=== PATIENT | male | born 1985 | race Caucasian/White ===

== ENCOUNTER 2017-12-13 16:47 | Inpatient (IN) | payer MEDICAID ==
[~2017-12-13] VITALS: Ht 200.7 cm; Wt 62.6 kg
[2017-12-13] MEDS ORDERED: SERT50TA12 PO (17:08)
[2017-12-13 17:19] LABS: AMPHET/METH SCREEN,URINE POSITIVE (NEGATIVE); BARBITURATE SCREEN, URINE NEGATIVE (NEGATIVE); BENZODIAZEPINES SCREEN,URINE NEGATIVE (NEGATIVE); CANNABINOID SCREEN,URINE POSITIVE (NEGATIVE); COCAINE SCREEN,URINE NEGATIVE (NEGATIVE); METHADONE SCREEN, URINE NEGATIVE (NEGATIVE); OPIATE SCREEN,URINE NEGATIVE (NEGATIVE)
[2017-12-13 17:23] LABS: PHENCYCLIDINE SCREEN,URINE NEGATIVE (NEGATIVE)
[2017-12-13] MEDS ORDERED: LORazepam 2 MG/ML VIAL IM ONE (20:00)
[2017-12-13] MEDS ORDERED: HALOPERIDOL LACTATE 5 MG/ML VIAL IM ONE (20:00)
[2017-12-13] MEDS ORDERED: DiphenhydrAMINE HCL 50 MG/ML VIAL IM ONE (20:00)
[2017-12-14 12:47] VITALS: BP 123/61
[2017-12-14 16:14] VITALS: BP 114/60
[2017-12-14] MEDS ORDERED: ONDANSETRON HCL 4 MG TABLET PO PRN (19:00)
[2017-12-14] MEDS ORDERED: ACETAMINOPHEN 325 MG TABLET PO PRN (19:00)
[2017-12-14] MEDS ORDERED: IBUPROFEN 600 MG TABLET PO PRN (19:00)
[2017-12-14] MEDS ORDERED: ALBUTEROL SULFATE HFA 90 MCG/PUFF 8 GM INHALER IH PRN (19:00)
[2017-12-14] MEDS ORDERED: BACITRACIN 28.4 GM OINTMENT TP PRN (19:00)
[2017-12-14] MEDS ORDERED: MAG HYDROX/AL HYDROX/SIMETH ES 30 ML SUSPENSION UDCUP PO PRN (19:00)
[2017-12-14] MEDS ORDERED: LOPERAMIDE HCL 2 MG CAPSULE PO PRN (19:00)
[2017-12-14] MEDS ORDERED: BENZOCAINE/MENTHOL LOZENGE MM PRN (19:00)
[2017-12-14] MEDS ORDERED: CloNIDine HCL 0.1 MG TABLET PO PRN (19:00)
[2017-12-14] MEDS ORDERED: MAGNESIUM HYDROXIDE SUSPENSION 30 ML UDCUP PO PRN (19:00)
[2017-12-14] MEDS ORDERED: PETROLATUM,WHITE 71 GM JELLY TP PRN (19:00)
[2017-12-15 06:38] VITALS: BP 116/64
[2017-12-15 08:00] VITALS: BP 113/68
[2017-12-15] MEDS: OMEPRAZOLE 20 MG CAPSULE PO SCH (09:00)
[2017-12-15] MEDS: DOCUSATE SODIUM 100 MG CAPSULE PO SCH (09:00)
[2017-12-15] MEDS: LORazepam 2 MG TABLET PO PRN (14:47)
[2017-12-15] MEDS: HALOPERIDOL 5 MG TABLET PO PRN (14:47)
[2017-12-15 16:00] VITALS: BP 124/71
[2017-12-15] MEDS: OLANZapine 5 MG TABLET PO SCH (20:09)
[2017-12-16 06:32] VITALS: BP 115/82
[2017-12-16 08:20] LABS: BASOPHILS % (AUTO) 0.7 % (0.0-2.0); EOSINOPHILS % (AUTO) 4.9 % (1.0-6.0); HEMATOCRIT 40.5 % (41-53); HEMOGLOBIN 13.4 g/dL (13.5-17.5); LYMPHOCYTES # (AUTO) 1.2 K/uL (1.0-4.8); MEAN CORPUSCULAR HEMOGLOBIN 28.3 pg (26.0-34.0); MEAN CORPUSCULAR HGB CONC 33.2 G/dL (31.0-37.0); MEAN CORPUSCULAR VOLUME 85 fL (80-100); MONOCYTES # (AUTO) 0.3 K/uL (0.1-1.0); MONOCYTES % (AUTO) 6.7 % (2.0-9.0); NEUTROPHILS # (AUTO) 2.6 K/uL (1.8-7.7); NEUTROPHILS % (AUTO) 59.7 % (40.0-70.0); PLATELET COUNT (AUTO) 265 K/uL (150-450); RED BLOOD CELL COUNT(AUTO) 4.75 MIL/uL (4.50-5.90); RED CELL DISTRIBUTION WIDTH 12.5 % (11.5-14.5)
[2017-12-16 08:21] VITALS: BP 129/79
[2017-12-16 08:45] LABS: HEMOGLOBIN A1C 6.2 % (4.5-6.2)
[2017-12-16] MEDS: OLANZapine 5 MG TABLET PO SCH ×2 (09:00→21:00)
[2017-12-16] MEDS: DOCUSATE SODIUM 100 MG CAPSULE PO SCH (09:00)
[2017-12-16] MEDS: OMEPRAZOLE 20 MG CAPSULE PO SCH (09:00)
[2017-12-16 09:21] LABS: ALANINE AMINOTRANSFERASE 63 U/L (12-78); ALBUMIN 3.6 g/dL (3.4-5.0); ALKALINE PHOSPHATASE 56 U/L (46-116); ANION GAP 8 mmol/L (8-16); ASPARTATE AMINOTRANSFERASE 45 U/L (15-37); BILIRUBIN,TOTAL 0.9 mg/dL (0.1-1.0); CALCIUM, TOTAL 8.3 mg/dL (8.8-10.5); CARBON DIOXIDE 26 mmol/L (22-29); CHLORIDE 105 mmol/L (98-107); CHOL/HDL RATIO 2.9 (4.2-7.3); CHOLESTEROL 144 mg/dL (131-200); CREATININE 0.94 mg/dL (0.60-1.30); FREE T4 (FREE THYROXINE) 1.02 ng/dL (0.76-1.46); GLOMERULAR FILTR. RATE CALC > 60 mL/min (>60); GLUCOSE,RANDOM 93 mg/dL (70-110); HDL CHOLESTEROL 49 mg/dL (40-60); LDL CHOL (CALC.) 81 mg/dL (0-130); POTASSIUM 4.2 mmol/L (3.5-5.1); SODIUM SERUM 139 mmol/L (136-145); THYROID STIMULATING HORMONE 2.59 uIU/mL (0.36-3.74); TOTAL PROTEIN, SERUM 6.9 g/dL (6.4-8.2); TRIGLYCERIDES 68 mg/dL (15-150); UREA NITROGEN, BLOOD 12 mg/dL (7-18)
[2017-12-16] MEDS: LORazepam 2 MG TABLET PO PRN (15:16)
[2017-12-16] MEDS: HALOPERIDOL 5 MG TABLET PO PRN (15:16)
[2017-12-16 16:11] VITALS: BP 138/78
[2017-12-16] MEDS: ZOLPIDEM TARTRATE 10 MG TABLET PO PRN (21:00)
[2017-12-17 06:40] VITALS: BP 113/64
[2017-12-17 08:26] VITALS: BP 126/79
[2017-12-17] MEDS: OLANZapine 5 MG TABLET PO SCH ×2 (10:06→20:29)
[2017-12-17] MEDS: DOCUSATE SODIUM 100 MG CAPSULE PO SCH (10:06)
[2017-12-17] MEDS: OMEPRAZOLE 20 MG CAPSULE PO SCH (10:06)
[2017-12-17] MEDS: LORazepam 2 MG TABLET PO PRN ×2 (10:07→17:19)
[2017-12-17 16:13] VITALS: BP 114/66
[2017-12-17] MEDS: ZOLPIDEM TARTRATE 10 MG TABLET PO PRN (20:28)
[2017-12-18 06:19] VITALS: BP 121/75
[2017-12-18 08:06] VITALS: BP 127/82
[2017-12-18] MEDS: OLANZapine 5 MG TABLET PO SCH (09:00)
[2017-12-18] MEDS: OMEPRAZOLE 20 MG CAPSULE PO SCH (09:00)
[2017-12-18] MEDS: DOCUSATE SODIUM 100 MG CAPSULE PO SCH (09:00)
[2017-12-18 16:00] VITALS: BP 116/70
[2017-12-18] MEDS: LORazepam 2 MG TABLET PO PRN ×2 (16:44→20:45)
[2017-12-18] MEDS: ZOLPIDEM TARTRATE 10 MG TABLET PO PRN (20:45)
[2017-12-18] MEDS: OLANZapine 10 MG TABLET PO SCH (20:45)
[2017-12-19 01:51] VITALS: BP 121/90
[2017-12-19 08:24] VITALS: BP 135/88
[2017-12-19] MEDS: OMEPRAZOLE 20 MG CAPSULE PO SCH (08:55)
[2017-12-19] MEDS: LORazepam 2 MG TABLET PO PRN ×3 (08:56→20:19)
[2017-12-19] MEDS: HALOPERIDOL 5 MG TABLET PO PRN ×2 (08:56→13:49)
[2017-12-19] MEDS: DOCUSATE SODIUM 100 MG CAPSULE PO SCH (08:56)
[2017-12-19 16:00] VITALS: BP 130/88
[2017-12-19] MEDS: OLANZapine 10 MG TABLET PO SCH (20:19)
[2017-12-19] MEDS: ZOLPIDEM TARTRATE 10 MG TABLET PO PRN (20:19)
[2017-12-20 07:00] VITALS: BP 140/90
[2017-12-20 08:20] VITALS: BP 138/84
[2017-12-20] MEDS: DOCUSATE SODIUM 100 MG CAPSULE PO SCH (09:32)
[2017-12-20] MEDS: OMEPRAZOLE 20 MG CAPSULE PO SCH (09:32)
[2017-12-20] MEDS: HALOPERIDOL 5 MG TABLET PO PRN (16:06)
[2017-12-20] MEDS: LORazepam 1 MG TABLET PO PRN (16:06)
[2017-12-20 16:08] VITALS: BP 134/83
[2017-12-20] MEDS: ZOLPIDEM TARTRATE 10 MG TABLET PO PRN (20:12)
[2017-12-20] MEDS: OLANZapine 10 MG TABLET PO SCH (20:12)
[2017-12-21 05:48] VITALS: BP 144/93
[2017-12-21 08:10] VITALS: BP 148/76
[2017-12-21] MEDS: DOCUSATE SODIUM 100 MG CAPSULE PO SCH (08:50)
[2017-12-21] MEDS: OMEPRAZOLE 20 MG CAPSULE PO SCH (08:50)
[2017-12-21] MEDS: LORazepam 1 MG TABLET PO PRN ×2 (11:21→16:32)
[2017-12-21 16:22] VITALS: BP 110/61
[2017-12-21] MEDS: HALOPERIDOL 5 MG TABLET PO PRN (16:32)
[2017-12-21] MEDS: ZOLPIDEM TARTRATE 10 MG TABLET PO PRN (20:27)
[2017-12-21] MEDS: OLANZapine 10 MG TABLET PO SCH (20:27)
[2017-12-22 01:18] VITALS: BP 141/91
[2017-12-22 08:04] VITALS: BP 127/69
[2017-12-22] MEDS: DOCUSATE SODIUM 100 MG CAPSULE PO SCH (08:50)
[2017-12-22] MEDS: OMEPRAZOLE 20 MG CAPSULE PO SCH (08:50)
[2017-12-22] MEDS ORDERED: OLAN10TA20 PO (09:03)
[2017-12-22] MEDS ORDERED: OLAN10TA3 PO (13:29)
== END 2017-12-22 14:00 | disposition home or self-care (01) | DRG 750 ==
LOC: EMS 16:49 → B3A 12-14 11:35
DX: F20.0 Paranoid schizophrenia (principal); F32.9 Major depressive disorder, single episode, unspecified; F15.10 Other stimulant abuse, uncomplicated; K59.00 Constipation, unspecified; F12.10 Cannabis abuse, uncomplicated; Z72.89 Other problems related to lifestyle; Z71.41 Alcohol abuse counseling and surveillance of alcoholic; Z71.51 Drug abuse counseling and surveillance of drug abuser
CPT/HCPCS: 83036; 84439; 84443; 96372; 99285; J1200; J1630; J2060

== ENCOUNTER 2017-12-22 20:07 | Inpatient (IN) | payer MEDICAID ==
[~2017-12-22] VITALS: Ht 170.2 cm; Wt 65.3 kg
[~2017-12-22 20:07] MED LIST: OLAN10TA20 PO; OLAN10TA3 PO; SERT50TA12 PO
[2017-12-22 20:56] LABS: BASOPHILS % (AUTO) 0.5 % (0.0-2.0); EOSINOPHILS % (AUTO) 0.9 % (1.0-6.0); HEMATOCRIT 38.6 % (41-53); LYMPHOCYTES # (AUTO) 1.8 K/uL (1.0-4.8); LYMPHOCYTES % (AUTO) 16.5 % (22.0-44.0); MEAN CORPUSCULAR HEMOGLOBIN 28.2 pg (26.0-34.0); MEAN CORPUSCULAR HGB CONC 33.6 G/dL (31.0-37.0); MEAN CORPUSCULAR VOLUME 84 fL (80-100); MONOCYTES # (AUTO) 1.1 K/uL (0.1-1.0); MONOCYTES % (AUTO) 10.4 % (2.0-9.0); NEUTROPHILS # (AUTO) 7.7 K/uL (1.8-7.7); NEUTROPHILS % (AUTO) 71.7 % (40.0-70.0); PLATELET COUNT (AUTO) 258 K/uL (150-450); RED BLOOD CELL COUNT(AUTO) 4.61 MIL/uL (4.50-5.90); RED CELL DISTRIBUTION WIDTH 12.4 % (11.5-14.5)
[2017-12-22] MEDS ORDERED: LORazepam 2 MG/ML VIAL IM ONE (21:00)
[2017-12-22] MEDS ORDERED: HALOPERIDOL LACTATE 5 MG/ML VIAL IM ONE (21:00)
[2017-12-22 21:05] LABS: AMPHET/METH SCREEN,URINE NEGATIVE (NEGATIVE); BARBITURATE SCREEN, URINE NEGATIVE (NEGATIVE); BENZODIAZEPINES SCREEN,URINE NEGATIVE (NEGATIVE); CANNABINOID SCREEN,URINE POSITIVE (NEGATIVE); COCAINE SCREEN,URINE NEGATIVE (NEGATIVE); METHADONE SCREEN, URINE NEGATIVE (NEGATIVE); OPIATE SCREEN,URINE NEGATIVE (NEGATIVE)
[2017-12-22 21:06] LABS: ANION GAP 8 mmol/L (8-16); CARBON DIOXIDE 30 mmol/L (22-29); CHLORIDE 101 mmol/L (98-107); CREATININE 1.32 mg/dL (0.60-1.30); GLOMERULAR FILTR. RATE CALC > 60 mL/min (>60); GLUCOSE,RANDOM 99 mg/dL (70-110); POTASSIUM 4.6 mmol/L (3.5-5.1); SODIUM SERUM 139 mmol/L (136-145); UREA NITROGEN, BLOOD 23 mg/dL (7-18)
[2017-12-22 21:10] LABS: PHENCYCLIDINE SCREEN,URINE NEGATIVE (NEGATIVE)
[2017-12-22 21:12] LABS: ALANINE AMINOTRANSFERASE 73 U/L (12-78); ALBUMIN 4.1 g/dL (3.4-5.0); ALKALINE PHOSPHATASE 62 U/L (46-116); ASPARTATE AMINOTRANSFERASE 43 U/L (15-37); BILIRUBIN,TOTAL 0.4 mg/dL (0.1-1.0); TOTAL PROTEIN, SERUM 7.3 g/dL (6.4-8.2)
[2017-12-23] MEDS: OLANZapine 5 MG RAPDIS TABLET PO PRN (00:47)
[2017-12-23] MEDS: ZOLPIDEM TARTRATE 10 MG TABLET PO PRN ×2 (00:47→22:37)
[2017-12-23] MEDS: LORazepam 2 MG TABLET PO PRN (00:47)
[2017-12-23 00:56] VITALS: BP 135/90
[2017-12-23 08:16] VITALS: BP 135/89
[2017-12-23] MEDS ORDERED: ONDANSETRON HCL 4 MG TABLET PO PRN (14:15)
[2017-12-23] MEDS ORDERED: DOCUSATE SODIUM 100 MG CAPSULE PO PRN (14:15)
[2017-12-23] MEDS ORDERED: MAGNESIUM HYDROXIDE SUSPENSION 30 ML UDCUP PO PRN (14:15)
[2017-12-23] MEDS ORDERED: ACETAMINOPHEN 325 MG TABLET PO PRN (14:15)
[2017-12-23] MEDS ORDERED: ALBUTEROL SULFATE HFA 90 MCG/PUFF 8 GM INHALER IH PRN (14:15)
[2017-12-23] MEDS ORDERED: MAG HYDROX/AL HYDROX/SIMETH ES 30 ML SUSPENSION UDCUP PO PRN (14:15)
[2017-12-23] MEDS ORDERED: PETROLATUM,WHITE 71 GM JELLY TP PRN (14:15)
[2017-12-23] MEDS ORDERED: IBUPROFEN 400 MG TABLET PO PRN (14:15)
[2017-12-23 16:00] VITALS: BP 120/77
[2017-12-24 05:08] VITALS: BP 140/86
[2017-12-24 08:25] VITALS: BP 119/65
[2017-12-24 08:55] LABS: THYROID STIMULATING HORMONE 1.39 uIU/mL (0.36-3.74)
[2017-12-24] MEDS: OLANZapine 5 MG RAPDIS TABLET PO PRN (09:41)
[2017-12-24] MEDS: LORazepam 2 MG TABLET PO PRN ×2 (09:41→16:29)
[2017-12-24 17:21] VITALS: BP 119/68
[2017-12-24] MEDS: OLANZapine 10 MG TABLET PO SCH (20:39)
[2017-12-24] MEDS: ZOLPIDEM TARTRATE 10 MG TABLET PO PRN (20:39)
[2017-12-25 08:09] VITALS: BP 124/65
[2017-12-25 08:55] LABS: % IRON SATURATION 31.9 % (30-44)
[2017-12-25 16:00] VITALS: BP 128/64
[2017-12-25] MEDS: LORazepam 2 MG TABLET PO PRN (16:38)
[2017-12-25] MEDS: OLANZapine 5 MG RAPDIS TABLET PO PRN (16:38)
[2017-12-25] MEDS: ZOLPIDEM TARTRATE 10 MG TABLET PO PRN (20:58)
[2017-12-25] MEDS: OLANZapine 10 MG TABLET PO SCH (20:58)
[2017-12-26 08:48] VITALS: BP 130/81
[2017-12-26] MEDS: LORazepam 2 MG TABLET PO PRN (12:53)
== END 2017-12-26 15:30 | disposition home or self-care (01) | DRG 750 ==
LOC: EMS 20:09 → B3A 21:00
DX: F25.0 Schizoaffective disorder, bipolar type (principal); Z91.19 Patient's noncompliance with other medical treatment and regimen; I10 Essential (primary) hypertension; F41.9 Anxiety disorder, unspecified; F12.10 Cannabis abuse, uncomplicated; D64.9 Anemia, unspecified; F99 Mental disorder, not otherwise specified; F10.10 Alcohol abuse, uncomplicated
CPT/HCPCS: 80074; 82728; 83540; 83550; 84443; 87081; 99285; G0480

== ENCOUNTER 2019-01-26 15:35 | Inpatient (IN) | payer SELFPAY ==
[~2019-01-26] VITALS: Ht 170.2 cm; Wt 68.0 kg
[~2019-01-26 15:35] MED LIST changes: -OLAN10TA20 PO; -SERT50TA12 PO
[2019-01-26 16:43] LABS: BASOPHILS % (AUTO) 0.4 % (0.0-2.0); EOSINOPHILS % (AUTO) 1.1 % (1.0-6.0); HEMATOCRIT 38.5 % (41-53); HEMOGLOBIN 12.3 g/dL (13.5-17.5); LYMPHOCYTES % (AUTO) 12.8 % (22.0-44.0); MEAN CORPUSCULAR HEMOGLOBIN 27.3 pg (26.0-34.0); MEAN CORPUSCULAR VOLUME 85 fL (80-100); MONOCYTES # (AUTO) 0.5 K/uL (0.1-1.0); MONOCYTES % (AUTO) 6.7 % (2.0-9.0); NEUTROPHILS # (AUTO) 5.9 K/uL (1.8-7.7); PLATELET COUNT (AUTO) 276 K/uL (150-450); RED BLOOD CELL COUNT(AUTO) 4.53 MIL/uL (4.50-5.90); RED CELL DISTRIBUTION WIDTH 13.5 % (11.5-14.5)
[2019-01-26 16:55] LABS: ANION GAP 8 mmol/L (8-16); CALCIUM, TOTAL 9.4 mg/dL (8.8-10.5); CARBON DIOXIDE 29 mmol/L (22-29); CHLORIDE 103 mmol/L (98-107); CREATININE 1.16 mg/dL (0.60-1.30); GLOMERULAR FILTR. RATE CALC > 60 mL/min (>60); GLUCOSE,RANDOM 101 mg/dL (70-110); POTASSIUM 4.1 mmol/L (3.5-5.1); SODIUM SERUM 140 mmol/L (136-145); UREA NITROGEN, BLOOD 19 mg/dL (7-18)
[2019-01-26 17:00] LABS: ALANINE AMINOTRANSFERASE 34 U/L (12-78); ALBUMIN 3.5 g/dL (3.4-5.0); ALKALINE PHOSPHATASE 52 U/L (46-116); ASPARTATE AMINOTRANSFERASE 21 U/L (15-37); BILIRUBIN,TOTAL 0.4 mg/dL (0.1-1.0); TOTAL PROTEIN, SERUM 6.8 g/dL (6.4-8.2)
[2019-01-26] MEDS ORDERED: ZOLPIDEM TARTRATE 10 MG TABLET PO PRN (17:30)
[2019-01-26] MEDS ORDERED: HALOPERIDOL 5 MG TABLET PO PRN (17:30)
[2019-01-26] MEDS ORDERED: LORazepam 2 MG TABLET PO PRN (17:30)
[2019-01-26] MEDS ORDERED: IBUPROFEN 400 MG TABLET PO PRN (17:45)
[2019-01-26] MEDS ORDERED: ACETAMINOPHEN 325 MG TABLET PO PRN (17:45)
[2019-01-26 18:20] LABS: AMPHET/METH SCREEN,URINE POSITIVE (NEGATIVE); BARBITURATE SCREEN, URINE NEGATIVE (NEGATIVE); BENZODIAZEPINES SCREEN,URINE NEGATIVE (NEGATIVE); CANNABINOID SCREEN,URINE POSITIVE (NEGATIVE); COCAINE SCREEN,URINE POSITIVE (NEGATIVE); METHADONE SCREEN, URINE NEGATIVE (NEGATIVE); OPIATE SCREEN,URINE NEGATIVE (NEGATIVE)
[2019-01-26 18:23] LABS: PHENCYCLIDINE SCREEN,URINE NEGATIVE (NEGATIVE)
[2019-01-26 21:39] VITALS: BP 125/79
[2019-01-27 06:28] VITALS: BP 123/69
[2019-01-27 09:28] VITALS: BP 142/79
[2019-01-27 16:00] VITALS: BP 115/74
[2019-01-28 06:53] VITALS: BP 117/75
[2019-01-28 09:03] VITALS: BP 110/66
[2019-01-28 16:07] VITALS: BP 126/82
== END 2019-01-28 16:45 | disposition home or self-care (01) | DRG 885 ==
LOC: EMS 15:37 → B3A 19:30 → EMS 20:34
DX: F20.0 Paranoid schizophrenia (principal); R45.851 Suicidal ideations; F15.10 Other stimulant abuse, uncomplicated; F14.10 Cocaine abuse, uncomplicated; F12.10 Cannabis abuse, uncomplicated; R45.850 Homicidal ideations; F10.10 Alcohol abuse, uncomplicated; F99 Mental disorder, not otherwise specified; D64.9 Anemia, unspecified; F32.9 Major depressive disorder, single episode, unspecified; Z91.5 Personal history of self-harm; Z78.1 Physical restraint status
CPT/HCPCS: G0480

== ENCOUNTER 2022-02-27 15:32 | Inpatient (IN) | payer MEDICARE, MEDICAID ==
[~2022-02-27] VITALS: Ht 170.2 cm; Wt 65.6 kg
[2022-02-27] MEDS ORDERED: HALOPERIDOL LACTATE 5 MG/ML VIAL IM ONE (15:45)
[2022-02-27 15:53] LABS: BASOPHILS % (AUTO) 0.8 % (0.0-2.0); EOSINOPHILS % (AUTO) 1.1 % (1.0-6.0); HEMATOCRIT 35.9 % (41-53); HEMOGLOBIN 11.8 g/dL (13.5-17.5); LYMPHOCYTES # (AUTO) 1.3 K/uL (1.0-4.8); LYMPHOCYTES % (AUTO) 23.7 % (22.0-44.0); MEAN CORPUSCULAR HEMOGLOBIN 27.1 pg (26.0-34.0); MEAN CORPUSCULAR VOLUME 82 fL (80-100); MONOCYTES # (AUTO) 0.4 K/uL (0.1-1.0); MONOCYTES % (AUTO) 8.1 % (2.0-9.0); NEUTROPHILS # (AUTO) 3.6 K/uL (1.8-7.7); NEUTROPHILS % (AUTO) 66.3 % (40.0-70.0); PLATELET COUNT (AUTO) 265 K/uL (150-450); RED BLOOD CELL COUNT(AUTO) 4.37 MIL/uL (4.50-5.90); RED CELL DISTRIBUTION WIDTH 13.1 % (11.5-14.5)
[2022-02-27 16:07] LABS: ANION GAP 10 mmol/L (8-16); CALCIUM, TOTAL 8.7 mg/dL (8.8-10.5); CARBON DIOXIDE 26 mmol/L (22-29); CHLORIDE 108 mmol/L (98-107); GLUCOSE,RANDOM 118 mg/dL (70-110); POTASSIUM 3.9 mmol/L (3.5-5.1); SODIUM SERUM 144 mmol/L (136-145); UREA NITROGEN, BLOOD 16 mg/dL (7-18)
[2022-02-27 16:09] LABS: GLOMERULAR FILTR. RATE CALC 49 mL/min (>60)
[2022-02-27 16:12] LABS: ALANINE AMINOTRANSFERASE 37 U/L (12-78); ALBUMIN 3.8 g/dL (3.4-5.0); ALKALINE PHOSPHATASE 51 U/L (46-116); ASPARTATE AMINOTRANSFERASE 33 U/L (15-37); TOTAL PROTEIN, SERUM 6.8 g/dL (6.4-8.2)
[2022-02-27] MEDS ORDERED: HALOPERIDOL 5 MG TABLET PO PRN (16:45)
[2022-02-27] MEDS ORDERED: ZOLPIDEM TARTRATE 10 MG TABLET PO PRN (16:45)
[2022-02-27] MEDS ORDERED: LORazepam 2 MG TABLET PO PRN (16:45)
[2022-02-27 16:49] LABS: COVID AG,FIA SOURCE NASOPHARYNGEAL
[2022-02-27 20:51] VITALS: BP 144/93
[2022-02-27] MEDS ORDERED: MAG HYDROX/AL HYDROX/SIMETH ES 30 ML SUSPENSION UDCUP PO PRN (21:30)
[2022-02-27] MEDS ORDERED: CloNIDine HCL 0.1 MG TABLET PO PRN (21:30)
[2022-02-27] MEDS ORDERED: MAGNESIUM HYDROXIDE SUSPENSION 30 ML UDCUP PO PRN (21:30)
[2022-02-27] MEDS ORDERED: LOPERAMIDE HCL 2 MG CAPSULE PO PRN (21:30)
[2022-02-27] MEDS ORDERED: PETROLATUM,WHITE 28 GM JELLY TP PRN (21:30)
[2022-02-27] MEDS ORDERED: DOCUSATE SODIUM 100 MG CAPSULE PO PRN (21:30)
[2022-02-27] MEDS ORDERED: IBUPROFEN 600 MG TABLET PO PRN (21:30)
[2022-02-27] MEDS ORDERED: BENZOCAINE/MENTHOL LOZENGE PO PRN (21:30)
[2022-02-27] MEDS ORDERED: ACETAMINOPHEN 325 MG TABLET PO PRN (21:30)
[2022-02-27] MEDS ORDERED: OMEPRAZOLE 20 MG CAPSULE PO PRN (21:30)
[2022-02-27] MEDS ORDERED: ONDANSETRON HCL 4 MG TABLET PO PRN (21:30)
[2022-02-27] MEDS ORDERED: BACITRACIN 28 GM OINTMENT TP PRN (21:30)
[2022-02-27] MEDS ORDERED: ALBUTEROL SULFATE HFA 90 MCG/PUFF 8 GM INHALER IH PRN (21:30)
[2022-02-27 21:46] LABS: APPEARANCE,URINE HAZY (CLEAR); BILIRUBIN,URINE NEGATIVE (NEGATIVE); GLUCOSE, URINE (UA) NEGATIVE (NEGATIVE); KETONES,URINE NEGATIVE (NEGATIVE); LEUKOCYTE ESTERASE ,URINE NEGATIVE (NEGATIVE); NITRATE,URINE NEGATIVE (NEGATIVE); OCCULT BLOOD,URINE NEGATIVE (NEGATIVE); PROTEIN,URINE NEGATIVE (NEGATIVE); SPECIFIC GRAVITIY, URINE 1.017 (1.003-1.030); UROBILINOGEN,URINE <=1.0 mg/dL (<=1.0)
[2022-02-27 21:52] LABS: AMPHET/METH SCREEN,URINE POSITIVE (NEGATIVE); BARBITURATE SCREEN, URINE NEGATIVE (NEGATIVE); BENZODIAZEPINES SCREEN,URINE POSITIVE (NEGATIVE); CANNABINOID SCREEN,URINE POSITIVE (NEGATIVE); COCAINE SCREEN,URINE NEGATIVE (NEGATIVE); METHADONE SCREEN, URINE NEGATIVE (NEGATIVE); OPIATE SCREEN,URINE NEGATIVE (NEGATIVE); PHENCYCLIDINE SCREEN,URINE NEGATIVE (NEGATIVE)
[2022-02-28 11:55] VITALS: BP 132/75
[2022-02-28] MEDS: AmLODIPine BESYLATE 5 MG TABLET PO SCH (11:57)
[2022-02-28 16:29] VITALS: BP 122/88
[2022-03-01 07:11] LABS: ALANINE AMINOTRANSFERASE 42 U/L (12-78); ALBUMIN 3.8 g/dL (3.4-5.0); ALKALINE PHOSPHATASE 61 U/L (46-116); ANION GAP 7 mmol/L (8-16); ASPARTATE AMINOTRANSFERASE 35 U/L (15-37); BILIRUBIN,TOTAL 1.1 mg/dL (0.1-1.0); CALCIUM, TOTAL 9.2 mg/dL (8.8-10.5); CARBON DIOXIDE 27 mmol/L (22-29); CHLORIDE 102 mmol/L (98-107); CREATININE 1.04 mg/dL (0.60-1.30); GLUCOSE,RANDOM 105 mg/dL (70-110); POTASSIUM 4.5 mmol/L (3.5-5.1); SODIUM SERUM 136 mmol/L (136-145); TOTAL PROTEIN, SERUM 7.5 g/dL (6.4-8.2); UREA NITROGEN, BLOOD 13 mg/dL (7-18)
[2022-03-01 07:12] LABS: GLOMERULAR FILTR. RATE CALC > 60 mL/min (>60)
[2022-03-01 08:30] VITALS: BP 119/67
[2022-03-01] MEDS: RisperiDONE 3 MG TABLET PO SCH ×2 (09:03→20:25)
[2022-03-01] MEDS: AmLODIPine BESYLATE 5 MG TABLET PO SCH (09:03)
[2022-03-02 08:00] VITALS: BP 131/76
[2022-03-02] MEDS: AmLODIPine BESYLATE 5 MG TABLET PO SCH (09:15)
[2022-03-02] MEDS: RisperiDONE 3 MG TABLET PO SCH ×2 (09:15→20:32)
[2022-03-02] MEDS ORDERED: RISP3TAB63 PO (22:10)
[2022-03-03] MEDS: AmLODIPine BESYLATE 5 MG TABLET PO SCH (08:05)
[2022-03-03] MEDS: RisperiDONE 3 MG TABLET PO SCH (08:05)
[2022-03-03 08:25] VITALS: BP 142/87
[2022-03-03] MEDS ORDERED: AMLO-257 PO (09:06)
== END 2022-03-03 10:43 | disposition home or self-care (01) | DRG 885 ==
LOC: EMS 15:32 → 3EC 16:38
PROVIDERS: ADMIT Psychiatry & Neurology Psychiatry; ATTEND Psychiatry & Neurology Psychiatry
DX: F20.9 Schizophrenia, unspecified (principal); N17.0 Acute kidney failure with tubular necrosis; F15.10 Other stimulant abuse, uncomplicated; F12.10 Cannabis abuse, uncomplicated; F41.9 Anxiety disorder, unspecified; G47.00 Insomnia, unspecified; K59.00 Constipation, unspecified; I10 Essential (primary) hypertension; Z20.822 Contact with and (suspected) exposure to COVID-19
CPT/HCPCS: 80053; 80307; 81003; 85025; 99291; G0480; J1630

== ENCOUNTER 2022-03-13 21:01 | Inpatient (IN) | payer MEDICARE, MEDICAID ==
[~2022-03-13] VITALS: Ht 170.2 cm; Wt 69.8 kg
[~2022-03-13 21:01] MED LIST changes: +AMLO-257 PO; -OLAN10TA3 PO; +RISP3TAB63 PO
[2022-03-14 02:28] LABS: COVID AG,FIA SOURCE NASAL SWAB
[2022-03-14 16:06] VITALS: BP 144/64
[2022-03-14] MEDS: RisperiDONE 3 MG TABLET PO SCH (21:09)
[2022-03-15 07:20] LABS: BASOPHILS % (AUTO) 0.5 % (0.0-2.0); EOSINOPHILS % (AUTO) 6.2 % (1.0-6.0); HEMATOCRIT 43.4 % (41-53); LYMPHOCYTES # (AUTO) 1.9 K/uL (1.0-4.8); LYMPHOCYTES % (AUTO) 34.6 % (22.0-44.0); MEAN CORPUSCULAR HEMOGLOBIN 27.2 pg (26.0-34.0); MEAN CORPUSCULAR HGB CONC 32.3 G/dL (31.0-37.0); MEAN CORPUSCULAR VOLUME 84 fL (80-100); MONOCYTES # (AUTO) 0.4 K/uL (0.1-1.0); MONOCYTES % (AUTO) 7.2 % (2.0-9.0); NEUTROPHILS # (AUTO) 2.8 K/uL (1.8-7.7); NEUTROPHILS % (AUTO) 51.5 % (40.0-70.0); PLATELET COUNT (AUTO) 320 K/uL (150-450); RED BLOOD CELL COUNT(AUTO) 5.14 MIL/uL (4.50-5.90); RED CELL DISTRIBUTION WIDTH 13.5 % (11.5-14.5)
[2022-03-15 07:25] LABS: HEMOGLOBIN A1C 5.9 % (3.8-5.6)
[2022-03-15 07:37] LABS: ALANINE AMINOTRANSFERASE 26 U/L (12-78); ALBUMIN 3.6 g/dL (3.4-5.0); ALKALINE PHOSPHATASE 63 U/L (46-116); ANION GAP 7 mmol/L (8-16); ASPARTATE AMINOTRANSFERASE 17 U/L (15-37); BILIRUBIN,TOTAL 0.7 mg/dL (0.1-1.0); CALCIUM, TOTAL 9.3 mg/dL (8.8-10.5); CARBON DIOXIDE 28 mmol/L (22-29); CHLORIDE 107 mmol/L (98-107); CHOL/HDL RATIO 3.2 (4.2-7.3); CHOLESTEROL 175 mg/dL (131-200); CREATININE 0.95 mg/dL (0.60-1.30); GLUCOSE,RANDOM 101 mg/dL (70-110); HDL CHOLESTEROL 54 mg/dL (40-60); LDL CHOL (CALC.) 101 mg/dL (0-130); POTASSIUM 4.1 mmol/L (3.5-5.1); SODIUM SERUM 142 mmol/L (136-145); TOTAL PROTEIN, SERUM 6.9 g/dL (6.4-8.2); TRIGLYCERIDES 99 mg/dL (15-150); UREA NITROGEN, BLOOD 12 mg/dL (7-18)
[2022-03-15 07:42] LABS: GLOMERULAR FILTR. RATE CALC > 60 mL/min (>60)
[2022-03-15] MEDS: RisperiDONE 3 MG TABLET PO SCH ×2 (09:28→20:00)
[2022-03-15 09:39] VITALS: BP 133/74
[2022-03-15] MEDS ORDERED: ALBUTEROL SULFATE HFA 90 MCG/PUFF 8 GM INHALER IH PRN (11:00)
[2022-03-15] MEDS ORDERED: MAG HYDROX/AL HYDROX/SIMETH ES 30 ML SUSPENSION UDCUP PO PRN (11:00)
[2022-03-15] MEDS ORDERED: CloNIDine HCL 0.1 MG TABLET PO PRN (11:00)
[2022-03-15] MEDS ORDERED: BENZOCAINE/MENTHOL LOZENGE PO PRN (11:00)
[2022-03-15] MEDS ORDERED: PETROLATUM,WHITE 28 GM JELLY TP PRN (11:00)
[2022-03-15] MEDS ORDERED: DOCUSATE SODIUM 100 MG CAPSULE PO PRN (11:00)
[2022-03-15] MEDS ORDERED: ACETAMINOPHEN 325 MG TABLET PO PRN (11:00)
[2022-03-15] MEDS ORDERED: LOPERAMIDE HCL 2 MG CAPSULE PO PRN (11:00)
[2022-03-15] MEDS ORDERED: MAGNESIUM HYDROXIDE SUSPENSION 30 ML UDCUP PO PRN (11:00)
[2022-03-15] MEDS ORDERED: BACITRACIN 28 GM OINTMENT TP PRN (11:00)
[2022-03-15] MEDS ORDERED: IBUPROFEN 600 MG TABLET PO PRN (11:00)
[2022-03-15] MEDS ORDERED: OMEPRAZOLE 20 MG CAPSULE PO PRN (11:00)
[2022-03-15] MEDS ORDERED: ONDANSETRON HCL 4 MG TABLET PO PRN (11:00)
[2022-03-15 16:12] VITALS: BP 146/88
[2022-03-16] MEDS: RisperiDONE 3 MG TABLET PO SCH ×2 (08:27→20:33)
[2022-03-16 08:38] VITALS: BP 139/89
[2022-03-16 16:35] VITALS: BP 133/82
[2022-03-16] MEDS: HALOPERIDOL 5 MG TABLET PO PRN (20:33)
[2022-03-16] MEDS: LORazepam 2 MG TABLET PO PRN (20:33)
[2022-03-17 08:00] VITALS: BP 153/103
[2022-03-17] MEDS: RisperiDONE 3 MG TABLET PO SCH ×2 (08:52→20:20)
[2022-03-17] MEDS: HALOPERIDOL 5 MG TABLET PO PRN (08:52)
[2022-03-17] MEDS: LORazepam 2 MG TABLET PO PRN (08:53)
[2022-03-17 16:00] VITALS: BP 123/80
[2022-03-18 08:15] VITALS: BP 139/84
[2022-03-18] MEDS: RisperiDONE 3 MG TABLET PO SCH ×2 (08:17→20:23)
[2022-03-18 16:09] VITALS: BP 128/86
[2022-03-19 08:21] VITALS: BP 157/97
[2022-03-19] MEDS: LORazepam 2 MG TABLET PO PRN ×2 (09:40→19:49)
[2022-03-19] MEDS: RisperiDONE 3 MG TABLET PO SCH ×2 (09:40→20:44)
[2022-03-19 16:14] VITALS: BP 131/78
[2022-03-19 19:48] VITALS: BP 146/88
[2022-03-19] MEDS: ZOLPIDEM TARTRATE 10 MG TABLET PO PRN (19:49)
[2022-03-20 07:13] LABS: COVID AG,FIA SOURCE NASAL SWAB
[2022-03-20 08:44] VITALS: BP 146/88
[2022-03-20] MEDS: LORazepam 2 MG TABLET PO PRN ×2 (09:55→21:24)
[2022-03-20] MEDS: RisperiDONE 3 MG TABLET PO SCH ×2 (09:55→20:23)
[2022-03-20 16:11] VITALS: BP 141/95
[2022-03-20] MEDS: ZOLPIDEM TARTRATE 10 MG TABLET PO PRN (21:24)
[2022-03-21] MEDS: LORazepam 2 MG TABLET PO PRN (08:07)
[2022-03-21] MEDS: RisperiDONE 3 MG TABLET PO SCH ×2 (08:07→20:37)
[2022-03-21 10:12] VITALS: BP 111/72
[2022-03-21 16:55] VITALS: BP 126/78
[2022-03-21] MEDS: ZOLPIDEM TARTRATE 10 MG TABLET PO PRN (20:37)
[2022-03-22] MEDS: RisperiDONE 3 MG TABLET PO SCH ×2 (08:25→20:44)
[2022-03-22 08:47] VITALS: BP 126/78
[2022-03-22] MEDS: LORazepam 2 MG TABLET PO PRN (10:24)
[2022-03-22 16:06] VITALS: BP 122/86
[2022-03-23] MEDS: RisperiDONE 3 MG TABLET PO SCH ×2 (08:38→21:31)
[2022-03-23 14:58] VITALS: BP 130/74
[2022-03-23 16:11] VITALS: BP 134/82
[2022-03-24 08:17] VITALS: BP 148/86
[2022-03-24] MEDS: RisperiDONE 3 MG TABLET PO SCH ×2 (08:23→20:15)
[2022-03-24 16:03] VITALS: BP 141/82
[2022-03-24] MEDS: ZOLPIDEM TARTRATE 10 MG TABLET PO PRN (20:24)
[2022-03-24] MEDS: LORazepam 2 MG TABLET PO PRN (20:24)
[2022-03-25 08:27] VITALS: BP 111/70
[2022-03-25] MEDS: RisperiDONE 3 MG TABLET PO SCH ×2 (08:31→20:18)
[2022-03-25 17:03] VITALS: BP 131/79
[2022-03-25] MEDS: LORazepam 2 MG TABLET PO PRN (18:35)
[2022-03-26 08:24] VITALS: BP 145/87
[2022-03-26] MEDS: RisperiDONE 3 MG TABLET PO SCH ×2 (09:12→20:13)
[2022-03-26 16:37] VITALS: BP 128/79
[2022-03-26] MEDS: ZOLPIDEM TARTRATE 10 MG TABLET PO PRN (20:17)
[2022-03-27] MEDS: RisperiDONE 3 MG TABLET PO SCH ×2 (08:24→20:12)
[2022-03-27 08:30] VITALS: BP 138/85
[2022-03-27 13:41] LABS: COVID AG,FIA SOURCE NASAL SWAB
[2022-03-27 17:47] VITALS: BP 140/89
[2022-03-27] MEDS: ZOLPIDEM TARTRATE 10 MG TABLET PO PRN (20:26)
[2022-03-28 08:00] VITALS: BP 131/86
[2022-03-28] MEDS: RisperiDONE 3 MG TABLET PO SCH ×2 (08:45→20:38)
[2022-03-28 16:00] VITALS: BP 150/87
[2022-03-29] MEDS: RisperiDONE 3 MG TABLET PO SCH ×2 (08:26→20:03)
[2022-03-29 09:03] VITALS: BP 143/84
[2022-03-29 09:07] VITALS: BP 143/84
[2022-03-29 16:08] VITALS: BP 124/79
[2022-03-29] MEDS: LORazepam 2 MG TABLET PO PRN (20:07)
[2022-03-29] MEDS ORDERED: RISP3TAB63 PO (20:46)
[2022-03-30 09:07] VITALS: BP 140/95
[2022-03-30] MEDS: RisperiDONE 3 MG TABLET PO SCH (09:52)
[2022-03-30 13:50] LABS: COVID AG,FIA SOURCE NASAL SWAB
== END 2022-03-30 11:15 | disposition home or self-care (01) | DRG 885 ==
LOC: EMS 21:01 → 3EC 03-14 10:53
PROVIDERS: ADMIT Psychiatry & Neurology Psychiatry; ATTEND Psychiatry & Neurology Psychiatry
DX: F20.9 Schizophrenia, unspecified (principal); F15.10 Other stimulant abuse, uncomplicated; F32.A Depression, unspecified; F41.9 Anxiety disorder, unspecified; G47.00 Insomnia, unspecified; K59.00 Constipation, unspecified; Z20.822 Contact with and (suspected) exposure to COVID-19; I10 Essential (primary) hypertension; Z71.51 Drug abuse counseling and surveillance of drug abuser; Z79.899 Other long term (current) drug therapy
CPT/HCPCS: 80053; 80061; 83036; 85025; 87081; 99285